=== PATIENT | male | born 1990 | race Two or more races ===

== ENCOUNTER 2022-10-19 21:52 | Emergency (ER) | payer OTHER ==
[~2022-10-19] VITALS: Ht 180.3 cm; Wt 81.6 kg
== END 2022-10-20 04:04 | disposition left against medical advice (07) ==
LOC: ER 21:52
DX: Z53.21 Procedure and treatment not carried out due to patient leaving prior to being seen by health care provider (principal)

== ENCOUNTER 2024-08-02 16:58 | Emergency (ER) | payer OTHER ==
[~2024-08-02] VITALS: Ht 180.3 cm; Wt 83.9 kg
[2024-08-02] MEDS ORDERED: BUTALB/ACETAMINOPHEN/CAFFEINE 1 TAB TABLET PO ONE ×2 (18:45→18:51)
[2024-08-02] MEDS ORDERED: ONDANSETRON 4 MG TAB.RAPDIS PO ONE ×2 (18:45→18:51)
[2024-08-02 18:51] LABS: BASO % 1.1 % (0.1-1.2); EOS # 0.25 (0.04-0.54); EOS % 4.8 % (0.7-7.0); HEMATOCRIT 41.4 % (40.1-51.0); HEMOGLOBIN 14.2 g/dL (13.7-17.5); LYMPH # 1.93 (1.18-3.74); LYMPH % 36.8 % (19.3-53.1); MONO # 0.65 (0.24-0.82); NEUT # 2.35 (1.56-6.13); NEUT % 44.9 % (34.0-71.1); PLATELET COUNT 174 K/uL (163-369); RED BLOOD COUNT 4.74 M/uL (4.63-6.08); RED CELL DISTRIBUTION WIDTH 11.7 % (11.6-14.4)
[2024-08-02 18:52] LABS: MONO % 12.4 % (4.7-12.5)
[2024-08-02 19:13] LABS: COVID-19 AG NEGATIVE (NEGATIVE)
[2024-08-02 19:20] LABS: INFLUENZA A AG NEGATIVE (NEGATIVE); INFLUENZA B AG NEGATIVE (NEGATIVE)
[2024-08-02] MEDS ORDERED: BUTALB-ACETAMI1 EAC2 PO (20:08)
[2024-08-02] MEDS ORDERED: ZOFRAN8 MG PO (20:08)
[2024-08-02] MEDS ORDERED: PEPCID AC20 MG PO (20:08)
== END 2024-08-02 20:12 | disposition home or self-care (01) ==
LOC: ER 16:58
PROVIDERS: General Practice
DX: G43.809 Other migraine, not intractable, without status migrainosus (principal); R11.2 Nausea with vomiting, unspecified; Z20.822 Contact with and (suspected) exposure to COVID-19